=== PATIENT | male | born 2005 | race Caucasian/White ===

== ENCOUNTER 2023-05-26 00:09 | Emergency (ER) | payer BC, SELFPAY ==
[2023-05-26 00:11] VITALS: BP 151/75; PULSE 111; RESP 18; TEMP 36.6; O2SAT 100; BMI 27.8
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
[2023-05-26 02:33] VITALS: BP 120/98; PULSE 78; RESP 16; O2SAT 100
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
[2023-05-26 03:23] VITALS: BP 143/78; PULSE 102; RESP 16; O2SAT 99
[2023-05-26 03:26] VITALS: BP 143/78; PULSE 102; RESP 16; O2SAT 99
== END 2023-05-26 03:27 | disposition home or self-care (01) ==
PROVIDERS: Emergency Provider Emergency Medicine; Referring Provider Emergency Medicine; Visit Provider Emergency Medicine
DX: S09.90XA Unspecified injury of head, initial encounter (principal); F10.129 Alcohol abuse with intoxication, unspecified; M54.50 Low back pain, unspecified; T14.8XXA Other injury of unspecified body region, initial encounter; V48.5XXA Car driver injured in noncollision transport accident in traffic accident, initial encounter; Y92.410 Unspecified street and highway as the place of occurrence of the external cause; F17.220 Nicotine dependence, chewing tobacco, uncomplicated
CPT/HCPCS: 70450; 70486; 71046; 72100; 72125; 73130; 99282